=== PATIENT | male | born 1955 | race Caucasian/White ===

== ENCOUNTER 2024-09-09 12:19 | Outpatient (CLI) | payer OTHER, SELFPAY ==
--- NOTE | 2024-09-09 12:32 | XR_ITS ---
WS: [id number] Exam: XR sinus <3V [id number] Date/Time of Exam: 09/09/2024 12:36 PM Reason For Exam: CHRONIC SINUSITIS The sphenoid, ethmoid, maxillary and LEFT frontal sinuses are all clear. No fluid levels or soft tissue masses are seen. The RIGHT frontal sinuses are not developed. Mastoid air cells are clear. XR/XR sinus <3V [id number] IMPRESSION: 1. Paranasal sinuses are clear. No fluid level or soft tissue masses
== END 2024-09-09 12:20 | disposition home or self-care (01) ==
LOC: RAD 12:27
PROVIDERS: Visit Provider Nurse Practitioner Family
DX: J32.8 Other chronic sinusitis (principal)
CPT/HCPCS: 70210